=== PATIENT | female | born 1970 | race African-American/Black ===

== ENCOUNTER → 2016-06-23 | Outpatient (CLI) | payer OTHER ==
--- NOTE | 2016-06-23 08:31 | EKG REPORT ---
SEVERITY:- NORMAL ECG - SINUS RHYTHM : Confirmed by: Richard Kellogg 23-Jun-2016 08:31:02
[2016-06-23 09:35] LABS: HEMATOCRIT 39.6 % (36.0-47.0); HEMOGLOBIN 13.3 g/dL (12.0-15.5); HGB HCT DIFFERENCE 0.3; MEAN CORPUSCULAR HEMOGLOBIN 28.1 pg (27.0-33.4); MEAN CORPUSCULAR HGB CONC 33.7 g/dL (32.0-36.0); MEAN CORPUSCULAR VOLUME 84 fl (80-97); RED BLOOD COUNT 4.74 10^6/uL (3.72-5.28); RED CELL DISTRIBUTION WIDTH 13.3 % (11.5-14.0); WHITE BLOOD COUNT 5.8 10^3/uL (4.0-10.5)
[2016-06-23 09:42] LABS: APPEARANCE,URINE SLIGHTLY-CLOUDY; BILIRUBIN,URINE NEGATIVE (NEGATIVE); GLUCOSE, URINE NEGATIVE (NEGATIVE); KETONES,URINE NEGATIVE (NEGATIVE); LEUKOCYTE ESTERASE,URINE NEGATIVE (NEGATIVE); NITRITE,URINE NEGATIVE (NEGATIVE); PROTEIN,URINE NEGATIVE (NEGATIVE); UROBILINOGEN,URINE NEGATIVE mg/dL (<2.0)
[2016-06-23 10:21] LABS: ANION GAP 13 (5-19); BLOOD UREA NITROGEN 12 mg/dL (7-20); CALCIUM 10.9 mg/dL (8.4-10.2); CARBON DIOXIDE 30 mmol/L (22-30); CHLORIDE 98 mmol/L (98-107); CREATININE RESULT 0.85 mg/dL (0.52-1.25); GLUCOSE 136 mg/dL (75-110); POTASSIUM 4.1 mmol/L (3.6-5.0); SODIUM 140.5 mmol/L (137-145)
== END ==
LOC: OD 07:56
PROVIDERS: ATTEND Orthopaedic Surgery
DX: Z01.810 Encounter for preprocedural cardiovascular examination (principal); Z01.811 Encounter for preprocedural respiratory examination; Z01.818 Encounter for other preprocedural examination; Z79.899 Other long term (current) drug therapy; M17.11 Unilateral primary osteoarthritis, right knee
CPT/HCPCS: 36415; 71020; 80048; 81001; 85027; 93005; 93010

== ENCOUNTER 2016-06-30 06:42 | Inpatient (IN) | payer OTHER ==
[~2016-06-30 06:42] MED LIST: BUPIVACAINE INJ/PF LIPOSOME/PF 266 MG/20 ML SDV IJ PRN; CEFAZOLIN INJ 1 GM VIAL IV PRN; IBUPROFEN 800 MG in NORMAL SALINE 250 ML IV PRN; LANSOPRAZOLE 15 MG TAB.RAP.DR PO PRN; OXYCODONE HCL SR 10 MG TABLET PO PRN; RINGERS SOLUTION,LACTATED 1,000 ML IV PRN; SCOPOLAMINE HYDROBROMIDE 1.5 MG PATCH.TD72 TD PRN; VANCOMYCIN HCL 1,000 MG in DEXTROSE 5%-WATER 250 ML IV PRN
[2016-06-30] MEDS ORDERED: THROMBIN (BOVINE) 5000 UNIT EPITAXIS KIT ONE (07:15)
[2016-06-30] MEDS ORDERED: BUPIVACAINE INJ/PF LIPOSOME/PF 266 MG/20 ML SDV ONE (07:15)
[2016-06-30] MEDS ORDERED: THROMBIN (BOVINE) TOPICAL 20000 UNIT VIAL ONE (07:15)
[2016-06-30] MEDS ORDERED: PROPOFOL INJ 200 MG/20 ML VIAL IV ONE (07:26)
[2016-06-30] MEDS ORDERED: FENTANYL CITRATE INJ/PF 100 MCG/2 ML AMPUL ONE (07:26)
[2016-06-30] MEDS ORDERED: TRANEXAMIC ACID INJ/PF 1,000 MG/10 ML SDV IV ONE (07:26)
[2016-06-30] MEDS ORDERED: MIDAZOLAM 2 MG/2 ML INJ ONE (07:26)
[2016-06-30 08:00] LABS: POTASSIUM 3.9 mmol/L (3.6-5.0)
[2016-06-30] MEDS ORDERED: MEPERIDINE HCL/PF INJ 25 MG/1 ML DISP.SYRIN IV PRN (09:45)
[2016-06-30] MEDS ORDERED: DIPHENHYDRAMINE HCL 50 MG/ML VIAL IV PRN ×2 (09:45→10:32)
[2016-06-30] MEDS ORDERED: FENTANYL CITRATE INJ/PF 100 MCG/2 ML AMPUL IV PRN ×3 (09:45)
[2016-06-30] MEDS ORDERED: MORPHINE SULFATE 10 MG/ML INJ IV PRN ×3 (09:45→10:32)
[2016-06-30] MEDS ORDERED: PROMETHAZINE HCL INJ 25 MG/1 ML VIAL IV PRN ×2 (09:45)
[2016-06-30] MEDS ORDERED: ERGOCALCIFEROL 5000 UNIT PO PRN (10:32)
[2016-06-30] MEDS ORDERED: OXYMETAZOLINE HCL 0.05% NASAL SPRAY 15 ML BOTTLE NASL PRN (10:32)
[2016-06-30] MEDS ORDERED: ACETAMINOPHEN 325 MG TABLET PO PRN (10:32)
[2016-06-30] MEDS ORDERED: ZOLPIDEM TARTRATE 5 MG TABLET PO PRN (10:32)
[2016-06-30] MEDS ORDERED: RINGERS SOLUTION,LACTATED 1,000 ML IV PRN (10:32)
[2016-06-30] MEDS ORDERED: MAG HYDROX/AL HYDROX/SIMETH SUSP 30 ML UDCUP PO PRN (10:32)
[2016-06-30] MEDS ORDERED: ONDANSETRON HCL INJ/PF 4 MG/2 ML SDV IV PRN (10:32)
--- NOTE | 2016-06-30 10:32 | Operative Report ---
Operative Report DATE OF SURGERY: 06/30/16 PREOPERATIVE DIAGNOSIS: Right knee arthritis OPERATION: Right knee arthroplasty SURGEON: SHIKHA KELLY ANESTHESIA: Spinal TISSUE REMOVED OR ALTERED: Bone to pathology ESTIMATED BLOOD LOSS: 100 PROCEDURE: Implants used: Femur: Striker triathlon #4 CR femur Tibia:, #3 tibia Tibial liner:, 9 mm CS insert Patella: 29 mm oval patella Procedure with the patient supine on the operating table the right the limb is prepped and draped in a sterile fashion. The limb was elevated for exsanguination and the tourniquet inflated to 280 torr. A standard midline median parapatellar approach the knee is taken. Access is gained to the femoral canal through the intercondylar notch. Intramedullary alignment instrumentation used to resect 10 mm of distal femur in 5 of valgus. Sizing guide indicated a size for femur. Appropriate cutting jig is then used to fashion anterior posterior and chamfer cuts. A trial reduction femurs performed and this is judged to be adequate. Attention was next turned to the tibia. Using an extra medullary alignment system 9 millimeters was resected off the lateral tibial plateau. This is sized to a size 3 tibia. A trial reduction was now performed with a 4 femur and a 3 tibia using a 9 millimeters spacer. It is full extension and central patellofemoral tracking. The articular surface the patella was next resected using an oscillating saw. All trial implants were removed. Polymethylmethacrylate is mixed and used to cement the above implants in place. On adequate curing the cement excess cement was removed the tourniquet was deflated hemostasis obtained the wound is then closed in layers using interrupted Vicryl followed by kati. A sterile compressive dressing was applied and the patient returned to recovery room in satisfactory condition.
[2016-06-30] MEDS ORDERED: GLYCOPYRROLATE INJ 0.4 MG/2 ML VIAL ONE (11:43)
[2016-06-30] MEDS ORDERED: DEXAMETHASONE SOD PHOSPHATE INJ 4 MG/1 ML VIAL ONE (11:43)
[2016-06-30] MEDS ORDERED: PHENYLEPHRINE HCL INJ/PF 10 MG/1 ML SDV ONE (11:43)
[2016-06-30] MEDS ORDERED: ONDANSETRON HCL INJ/PF 4 MG/2 ML SDV ONE (11:43)
[2016-06-30] MEDS: MORPHINE SULFATE 10 MG/ML INJ IM PRN ×2 (12:58→16:15)
[2016-06-30] MEDS: ONDANSETRON 4 MG TAB.RAPDIS PO PRN ×2 (13:50→19:53)
[2016-06-30] MEDS: OXYCODONE HCL IR 5 MG TABLET PO PRN ×2 (14:40→20:43)
[2016-06-30] MEDS ORDERED: HYDROCHLOROTHIAZIDE 25 MG TABLET PO ONE (15:00)
[2016-06-30] MEDS: IBUPROFEN 800 MG in NORMAL SALINE 250 ML IV SCH (18:23)
[2016-06-30] MEDS: SENNOSIDES/DOCUSATE 8.6-50 MG 1 EACH TABLET PO SCH (18:43)
[2016-06-30] MEDS: MORPHINE SULFATE 10 MG/ML INJ IV PRN (22:13)
[2016-06-30] MEDS: RIVAROXABAN 10 MG TABLET PO SCH (22:13)
[2016-06-30] MEDS ORDERED: VANCOMYCIN HCL 1,000 MG in DEXTROSE 5%-WATER 250 ML IV ONE (23:00)
[2016-06-30] MEDS: OXYCODONE HCL SR 10 MG TABLET PO SCH (23:15)
[2016-07-01] MEDS: MORPHINE SULFATE 10 MG/ML INJ IV PRN ×8 (00:30→23:47)
[2016-07-01] MEDS: ONDANSETRON 4 MG TAB.RAPDIS PO PRN (02:02)
[2016-07-01] MEDS: IBUPROFEN 800 MG in NORMAL SALINE 250 ML IV SCH ×3 (02:02→17:59)
[2016-07-01] MEDS: LANSOPRAZOLE 30 MG TAB.RAP.DR PO SCH (05:15)
[2016-07-01 07:05] LABS: HEMATOCRIT 32.4 % (36.0-47.0); HGB HCT DIFFERENCE 0.6; MEAN CORPUSCULAR HEMOGLOBIN 27.8 pg (27.0-33.4); MEAN CORPUSCULAR HGB CONC 33.9 g/dL (32.0-36.0); MEAN CORPUSCULAR VOLUME 82 fl (80-97); RED BLOOD COUNT 3.95 10^6/uL (3.72-5.28); RED CELL DISTRIBUTION WIDTH 12.9 % (11.5-14.0); WHITE BLOOD COUNT 9.7 10^3/uL (4.0-10.5)
[2016-07-01 07:23] LABS: ANION GAP 13 (5-19); BLOOD UREA NITROGEN 8 mg/dL (7-20); CALCIUM 9.5 mg/dL (8.4-10.2); CARBON DIOXIDE 22 mmol/L (22-30); CHLORIDE 99 mmol/L (98-107); CREATININE RESULT 0.73 mg/dL (0.52-1.25); GLUCOSE 162 mg/dL (75-110); POTASSIUM 3.5 mmol/L (3.6-5.0); SODIUM 133.9 mmol/L (137-145)
[2016-07-01] MEDS: OXYCODONE HCL IR 5 MG TABLET PO PRN ×2 (07:58→17:53)
[2016-07-01] MEDS: HYDROCHLOROTHIAZIDE 25 MG TABLET PO SCH (09:56)
[2016-07-01] MEDS: OXYCODONE HCL SR 10 MG TABLET PO SCH ×2 (09:57→21:48)
[2016-07-01] MEDS: SENNOSIDES/DOCUSATE 8.6-50 MG 1 EACH TABLET PO SCH ×2 (09:58→17:56)
[2016-07-01] MEDS: PRENATAL VITAMIN W-O CA NO5/FE FUMARATE/FA CAPSULE PO SCH (10:15)
[2016-07-01] MEDS ORDERED: TRANEXAMIC ACID INJ/PF 1,000 MG/10 ML SDV IV ONE (12:00)
[2016-07-01] MEDS ORDERED: INFLUENZA ADLT QUAD (36MOS+) 2016-17 VAC 0.5 ML SYR IM PRN (16:10)
[2016-07-01] MEDS: RIVAROXABAN 10 MG TABLET PO SCH (21:48)
[2016-07-02] MEDS: IBUPROFEN 800 MG in NORMAL SALINE 250 ML IV SCH ×2 (02:25→09:34)
[2016-07-02] MEDS: MORPHINE SULFATE 10 MG/ML INJ IV PRN ×3 (02:25→12:05)
[2016-07-02] MEDS: LANSOPRAZOLE 30 MG TAB.RAP.DR PO SCH (06:30)
--- NOTE | 2016-07-02 07:08 | PDOC DISCHARGE SUMMARY ---
General - Admit/Disc Date/PCP Admission Date/Primary Care Provider: 06/30/16 06:42 SHAILA HENDRICKS PA-C Discharge Date: 07/02/16 - Discharge Diagnosis (1) Arthritis of right knee Is this a current diagnosis for this admission?: Yes - Additional Information Resuscitation Status: Full Code Discharge Diet: As Tolerated, Regular Discharge Activity: Balance Activity w/Rest Home Medications: Ergocalciferol (Vitamin D2) [Vitamin D2] 5,000 unit PO FR@1000 06/25/16 Hydrochlorothiazide 25 mg PO QAM 06/25/16 Meloxicam 7.5 mg PO BID 06/25/16 Oxymetazoline HCl [Afrin 0.05% Nasal [place] 15 ml Bottle] 1 spray NASL ASDIR PRN 06/25/16 Oxycodone HCl [Oxy-Ir 5 mg Tablet] 5 mg PO Q6HP PRN #0 tablet 07/02/16 Rivaroxaban [Xarelto 10 mg Tablet] 10 mg PO QHS #0 tablet 07/02/16 History of Present Illness History of Present Illness: HENOK BOJORQUEZ is a 45 year old female who presented with progressive right knee pain and functional disability. She is admitted for elective right knee arthroplasty. Hospital Course Hospital Course: Patient's a Mitek through the operating room where she undergoes uncomplicated right knee arthroplasty. She's returned to the floor in satisfactory condition. She makes excellent progress with physical therapy and weightbearing as tolerated basis. Remains above 32%. Blood glucoses are under control between 1:30 11/01/1956. Dressing is changed on postop day #2. Wound is clean dry and intact. Physical Exam Vital Signs: Temp Pulse Resp BP Pulse Ox 36.7 C 112 H 17 117/80 98 07/01/16 23:32 07/01/16 23:32 07/01/16 23:32 07/01/16 23:32 07/01/16 23:32 Intake & Output 07/01/16 07/02/16 07/03/16 06:59 06:59 06:59 Intake Total 6550 1214 Output Total 5085 Balance 1465 1214 Weight 80.1 kg General appearance: PRESENT: no acute distress Head exam: PRESENT: normocephalic Eye exam: PRESENT: EOMI Respiratory exam: PRESENT: unlabored Cardiovascular exam: PRESENT: RRR Pulses: PRESENT: +1 pedal pulses bilateral GI/Abdominal exam: PRESENT: soft Rectal exam: PRESENT: deferred Extremities exam: PRESENT: other - Right knee incision is well approximated with kati. There is no erythema or drainage. Dressing is really placed with an OpSite. Distal neurovascular examination is intact. There is minimal pedal edema. Neurological exam: PRESENT: alert, awake, oriented to person, oriented to place , oriented to time, oriented to situation, CN II-XII grossly intact. ABSENT: motor sensory deficit Psychiatric exam: PRESENT: appropriate affect, normal mood. ABSENT: homicidal ideation, suicidal ideation Results Laboratory Results: 07/01/16 06:16 07/01/16 06:16 07/01/16 07/01/16 06:16 06:16 WBC 9.7 RBC 3.95 Hgb 11.0 L Hct 32.4 L MCV 82 MCH 27.8 MCHC 33.9 RDW 12.9 Plt Count 235 Sodium 133.9 L Potassium 3.5 L Chloride 99 Carbon Dioxide 22 Anion Gap 13 BUN 8 Creatinine 0.73 Est GFR ( Amer) > 60 Est GFR (Non-Af Amer) > 60 Glucose 162 H Calcium 9.5 Impressions: Knee X-Ray 06/30/16 10:33 IMPRESSION: SATISFACTORY POSTOPERATIVE RIGHT KNEE. Status: Imported from PACS Qualifiers P[facility]INT BEING DISCHARGED WITH ANY OF THE FOLLOWING DIAGNOSIS?: No VTE patient discharged on overlapping Therapy?: Yes Plan Discharge Plan: Patient to be discharged home with home health nursing and home health physical therapy. Patient also we'll walker and bedside commode. Follow-up can be with Dr. Lopez in the [facility] for surgery approximately 2 weeks for staple removal. Time Spent: Less than 30 Minutes
[2016-07-02 07:22] LABS: HEMOGLOBIN 10.2 g/dL (12.0-15.5); HGB HCT DIFFERENCE 0.6; MEAN CORPUSCULAR HEMOGLOBIN 28.1 pg (27.0-33.4); MEAN CORPUSCULAR HGB CONC 34.1 g/dL (32.0-36.0); MEAN CORPUSCULAR VOLUME 82 fl (80-97); RED BLOOD COUNT 3.64 10^6/uL (3.72-5.28); RED CELL DISTRIBUTION WIDTH 13.1 % (11.5-14.0); WHITE BLOOD COUNT 9.2 10^3/uL (4.0-10.5)
[2016-07-02] MEDS: PRENATAL VITAMIN W-O CA NO5/FE FUMARATE/FA CAPSULE PO SCH (09:32)
[2016-07-02] MEDS: HYDROCHLOROTHIAZIDE 25 MG TABLET PO SCH (09:32)
[2016-07-02] MEDS: OXYCODONE HCL SR 10 MG TABLET PO SCH (09:33)
[2016-07-02] MEDS: SENNOSIDES/DOCUSATE 8.6-50 MG 1 EACH TABLET PO SCH (09:34)
[2016-07-02 11:40] VITALS: BP 133/77
== END 2016-07-02 12:40 | disposition home or self-care (01) | DRG 470 ==
LOC: INOR 06:42 → 4N 12:00
PROVIDERS: ADMIT Orthopaedic Surgery; ATTEND Orthopaedic Surgery
PROC: 0SRC0J9 Replacement of Right Knee Joint with Synthetic Substitute, Cemented, Open Approach (ICD-10-PCS; principal; 2016-06-30 09:00)
DX: M17.11 Unilateral primary osteoarthritis, right knee (principal); Z90.49 Acquired absence of other specified parts of digestive tract; Z90.710 Acquired absence of both cervix and uterus
CPT/HCPCS: 01402; 36415; 80048; 82947; 82962; 84132; 85027; 88305; 88311; 90686; 94799; C9290; J0690; J1100; J1741; J2250; J2270; J2370; J2405; J2704; J3010; J3370; J3490; J7050; J7060; J7120; S0119

== ENCOUNTER 2016-07-05 10:38 | Emergency (ER) | payer OTHER ==
--- NOTE | 2016-07-05 10:44 | ER Document Report ---
ED Medical Screen (RME) - General Stated Complaint: KNEE PAIN Time seen by provider: 10:43 Mode of Arrival: Ambulatory Information source: Patient Notes: 45-year-old female with a total right knee replacement on Thursday by Dr. Lopez noticed a small bruise on the medial right ankle yesterday and it has gotten larger today. She takes xarelto 10mg daily. Right knee pain has not changed since her surgery. No fever. TRAVEL OUTSIDE OF THE [place] IN LAST 30 DAYS: No - Related Data Allergies/Adverse Reactions: No Known Allergies Allergy (Verified 07/05/16 10:44) Past Medical History - Past Medical History Cardiac Medical History: Reports: Hx Hypertension Denies: Hx Atrial Fibrillation, Hx Congestive Heart Failure, Hx Coronary Artery Disease, Hx Heart Attack, Hx Hypercholesterolemia, Hx Peripheral Vascular Disease, Hx Heart Murmur Neurological Medical History: Denies: Hx Cerebrovascular Accident, Hx Seizures Endocrine Medical History: Denies: Hx Graves' Disease, Hx Hyperthyroidism, Hx Hypothyroidism Renal/ Medical History: Reports: Hx Kidney Stones - several. Denies: Hx End Stage Renal Disease, Hx Peritoneal Dialysis GI Medical History: Denies: Hx Crohn's Disease, Hx Gastroesophageal Reflux Disease, Hx Hiatal Hernia, Hx Irritable Bowel, Hx Liver Failure, Hx Ulcer Musculoskeltal Medical History: Reports Hx Arthritis, Denies Hx Fibromyalgia, Denies Hx Multiple Sclerosis, Denies Hx Muscular Dystrophy Psychiatric Medical History: Reports: Hx Depression - Anxiety Denies: Hx Bipolar Disorder, Hx Dementia, Hx Post Traumatic Stress Disorder, Hx Schizophrenia Traumatic Medical History: Denies: Hx Fractures Past Surgical History: Reports: Hx Cholecystectomy, Hx Hysterectomy. Denies: Hx Appendectomy, Hx Bowel Surgery, Hx Section, Hx Colostomy, Hx Coronary Artery Bypass Graft, Hx Gastric Bypass Surgery, Hx Herniorrhaphy, Hx Mastectomy, Hx Pacemaker, Hx Tonsillectomy, Hx Tubal Ligation Physical Exam - Vital signs Vitals: Temp Pulse Resp BP Pulse Ox 98.2 F 113 H 16 134/94 H 98 07/05/16 10:41 07/05/16 10:41 07/05/16 10:41 07/05/16 10:41 07/05/16 10:41 Course - Vital Signs Vital signs: Temp Pulse Resp BP Pulse Ox 98.2 F 113 H 16 134/94 H 98 07/05/16 10:41 07/05/16 10:41 07/05/16 10:41 07/05/16 10:41 07/05/16 10:41
[2016-07-05 11:10] LABS: ABSOLUTE EOSINOPHILS # (AUTO) 0.2 10^3/uL (0.0-0.6); ABSOLUTE LYMPHOCYTES (AUTO) 1.5 10^3/uL (0.5-4.7); ABSOLUTE MONOCYTES (AUTO) 0.7 10^3/uL (0.1-1.4); BASOPHILS % (AUTO) 0.2 % (0-2); HEMATOCRIT 31.6 % (36.0-47.0); HEMOGLOBIN 10.6 g/dL (12.0-15.5); HGB HCT DIFFERENCE 0.2; LYMPHOCYTES % (AUTO) 16.4 % (13-45); MEAN CORPUSCULAR HEMOGLOBIN 28.1 pg (27.0-33.4); MEAN CORPUSCULAR HGB CONC 33.6 g/dL (32.0-36.0); MEAN CORPUSCULAR VOLUME 84 fl (80-97); MONOCYTES % (AUTO) 7.2 % (3-13); PROTHROMBIN TIME 21.2 SEC (11.4-15.4); RED BLOOD COUNT 3.78 10^6/uL (3.72-5.28); RED CELL DISTRIBUTION WIDTH 12.9 % (11.5-14.0); SEGMENTED NEUTROPHILS % (AUTO) 74.2 % (42-78); WHITE BLOOD COUNT 9.4 10^3/uL (4.0-10.5)
[2016-07-05 11:11] LABS: PARTIAL THROMBOPLASTIN TIME 48.7 SEC (23.5-35.8)
[2016-07-05 11:30] LABS: ALANINE AMINOTRANSFERASE 123 U/L (9-52); ALBUMIN 3.9 g/dL (3.5-5.0); ALKALINE PHOSPHATASE 118 U/L (38-126); ANION GAP 13 (5-19); ASPARTATE AMINO TRANSFERASE 65 U/L (14-36); BILIRUBIN,TOTAL 0.8 mg/dL (0.2-1.3); BLOOD UREA NITROGEN 9 mg/dL (7-20); CALCIUM 10.1 mg/dL (8.4-10.2); CARBON DIOXIDE 29 mmol/L (22-30); CHLORIDE 96 mmol/L (98-107); CREATININE RESULT 0.83 mg/dL (0.52-1.25); GLUCOSE 152 mg/dL (75-110); POTASSIUM 3.8 mmol/L (3.6-5.0); TOTAL PROTEIN 7.2 g/dL (6.3-8.2)
[2016-07-05] MEDS ORDERED: PROMETHAZINE HCL 25 MG TABLET PO ONE (11:45)
[2016-07-05] MEDS ORDERED: OXYCODONE-ACETAMINOPHEN 5-325 MG TABLET PO ONE (11:45)
--- NOTE | 2016-07-05 15:16 | ER Document Report ---
ED Extremity Problem, Lower - General Chief Complaint: Knee Pain Stated Complaint: KNEE PAIN Mode of Arrival: Ambulatory Notes: Patient underwent a right total knee replacement by Dr. Kelly on Thursday. She is complaining of pain and swelling of her right knee with bruising apparent over the medial, inner aspect of the right knee and to a lesser extent over the outer, lateral aspect of that same right knee joint. Patient is on Xarelto anticoagulation since her surgery on Thursday. Denies any chest pains. No shortness of breath or difficulty breathing. No fevers. No history of venous thromboses. Patient is on Percocets for postsurgical pain TRAVEL OUTSIDE OF THE [place] IN LAST 30 DAYS: No - Related Data Allergies/Adverse Reactions: No Known Allergies Allergy (Verified 07/05/16 10:44) Home Medications: Current Home Medications Promethazine HCl [Phenergan 25 mg Tablet] 25 mg PO Q6 07/05/16 [History] Past Medical History - General Information source: Patient - Social History Smoking Status: Unknown if Ever Smoked Cigarette use (# per day): No Chew tobacco use (# tins/day): No Frequency of alcohol use: None Drug Abuse: None Family History: Reviewed & Not Pertinent Patient has suicidal ideation: No Patient has homicidal ideation: No - Past Medical History Cardiac Medical History: Reports: Hx Hypertension Denies: Hx DVT, Hx Peripheral Vascular Disease, Hx Pulmonary Embolism Neurological Medical History: Denies: Hx Cerebrovascular Accident, Hx Seizures Renal/ Medical History: Reports: Hx Kidney Stones - several. Denies: Hx End Stage Renal Disease GI Medical History: Denies: Hx Crohn's Disease, Hx Gastroesophageal Reflux Disease, Hx Hiatal Hernia, Hx Irritable Bowel, Hx Liver Failure, Hx Ulcer Musculoskeltal Medical History: Reports Hx Arthritis, Denies Hx Fibromyalgia, Denies Hx Multiple Sclerosis, Denies Hx Muscular Dystrophy Psychiatric Medical History: Reports: Hx Depression - Anxiety Traumatic Medical History: Denies: Hx Fractures Past Surgical History: Reports: Hx Cholecystectomy, Hx Hysterectomy, Hx Orthopedic Surgery - rt knee replacement - Immunizations Hx Diphtheria, Pertussis, Tetanus Vaccination: Yes Review of Systems - Review of Systems Notes: REVIEW OF SYSTEMS: CONSTITUTIONAL : Denies fever. EENT: Denies eye, ear, nose or mouth or throat pain or other symptoms. CARDIOVASCULAR: Denies chest pain. RESPIRATORY: Denies cough, chest congestion, or shortness of breath. GASTROINTESTINAL: Denies abdominal pain or nausea, vomiting, or diarrhea. GENITOURINARY: Denies difficulty or painful urinating, urinary frequency, blood in urine. MUSCULOSKELETAL: Denies back or neck pain. See history of present illness regarding right knee. SKIN: Denies rash or skin lesions. NEUROLOGICAL: Denies LOC or altered mental status. Denies headache. Denies sensory loss or motor deficits. ALL OTHER SYSTEMS REVIEWED AND NEGATIVE. Physical Exam - Vital signs Vitals: Temp Pulse Resp BP Pulse Ox 98.2 F 113 H 16 134/94 H 98 07/05/16 10:41 07/05/16 10:41 07/05/16 10:41 07/05/16 10:41 07/05/16 10:41 Interpretation: Tachycardic - Very slight - Notes Notes: PHYSICAL EXAMINATION: GENERAL: Well-appearing, in no acute distress. Vital signs are all normal. HEAD: Atraumatic, normocephalic. EYES: Pupils equal round and reactive to light, extraocular movements intact. NECK: Normal range of motion, supple. LUNGS: Breath sounds clear and equal bilaterally. HEART: Regular rate and rhythm without murmurs. ABDOMEN: Soft, nontender. No guarding or rebound. EXTREMITIES: Patient's right knee has a post surgical bandage anteriorly patient has what appears to be some ecchymosis of the medial aspect of the right knee and slightly lesser amount of ecchymosis over the lateral aspect of the knee. She is tender diffusely. Warm to the touch, but no erythema noted. No significant effusion of the knee joint present. Remainder of the right lower extremity shows no areas of pain or swelling or anything that would suggest a DVT. All other joints with normal range of motion without pain. NEUROLOGICAL: Normal speech, normal gait. Normal sensory, motor, and reflex exams. Awake, alert, and oriented x3. Cranial nerves normal. PSYCH: Normal mood, normal affect. SKIN: Warm, dry, no rashes. Course - Vital Signs Vital signs: Temp Pulse Resp BP Pulse Ox 99.1 F 92 20 136/76 H 98 07/05/16 15:34 07/05/16 15:34 07/05/16 15:34 07/05/16 15:34 07/05/16 15:34 - Laboratory Result Diagrams: 07/05/16 10:50 07/05/16 10:50 Laboratory results interpreted by me: 07/05/16 07/05/16 07/05/16 10:50 10:50 10:50 Hgb 10.6 L Hct 31.6 L PT 21.2 H APTT 48.7 H Chloride 96 L Glucose 152 H AST 65 H ALT 123 H - Diagnostic Test Radiology reviewed: Image reviewed, Reports reviewed - Patient had a venous Doppler of the right lower extremity which did not show any evidence of DVT. Discharge - Discharge Clinical Impression: Pain, joint, knee, right S/P TKR (total knee replacement) Qualifiers: Laterality: right Qualified Code(s): Z96.651 - Presence of right artificial knee joint Condition: Stable Disposition: HOME, SELF-CARE Additional Instructions: Postop pain, right knee, Contusion Your injury has resulted in a contusion -- a crushing of the deep tissues. No injury to important structures was detected during the physician's exam. Contusions vary in the amount of pain they cause, and in the length of time required for healing. Typically, the area will become bruised, and will remain painful to touch for two or three weeks. However, most patients are back to working and playing within a few days. After the initial period of rest and cold-packs, your symptoms (together with the doctor's recommendations) will determine how rapidly you can get back to full activity. Usually this means "do what feels okay, but don't do things that hurt." If re-examination was recommended, it's important to follow up as instructed. Call the doctor or return any time if pain increases, if swelling becomes severe, if you develop numbness or weakness in an injured extremity, or if any other alarming symptoms occur. Ice & Elevation Apply ice packs frequently against the painful area. Many different schedules are recommended, such as "20 minutes on, 20 minutes off" or "one hour ice, two hours rest." If you need to work, you may need to go longer between ice treatments. You should plan to have the area ice packed AT LEAST one- fourth of the time. The ice should be applied over the wrap, tape, or splint, or over a layer of cloth -- not directly against the skin. Some ice bags have a built-in cloth and can be put directly on the skin. Your injured part should be elevated as much as possible over the next 48 hours. Try to keep the injury above the level of the heart. Avoid use of the injured area. Elevation and rest will decrease the swelling. Take your Percocet pain pills, up to one or two every 4 hours as needed for pain. FOLLOW-UP CARE: If you have been referred to a physician for follow-up care, call the physician s office for an appointment as you were instructed or within the next two days. If you experience worsening or a significant change in your symptoms, notify the physician immediately or return to the Emergency Department at any time for re-evaluation. Follow-up with Dr. Kelly as planned. Return if new or worsening symptoms, fever, etc. Referrals: SHIKHA KELLY MD [ACTIVE STAFF] - Follow up as needed
[2016-07-05 15:35] VITALS: BP 136/76
--- NOTE | 2016-07-05 15:52 | VASCULAR PRELIM REPORT ---
Provider Note Provider Note: negative for dvt. discussed with dr preciado at 1550 hours.
--- NOTE | 2016-07-07 15:13 | XCELERA REPORT ---
[address] [address] Lower Extremity Venous Evaluation Name: HENOK BOJORQUEZ Age: 45 yrs Gender: Female : 1970 Patient Status: Emergency Patient Location: ER Study Date: 07/05/2016 03:00 PM Procedure: Color flow and duplex imaging of the veins of the right lower extremity as well as the left Common Femoral vein. Reason For Study: pain, swelling, bruising medial R knee;TKR 5 d ago Ordering Physician: SCAR LONGO Performed By: Scarlett Hastings Right Sided Venous Evaluation Normal vessel filling wall to wall, compression and augmentation as well as Colour flow down to the infrageniculate veins. Left Sided Venous Evaluation The left common femoral vein is fully compressible. Spontaneous and phasic flow is present in the left common femoral vein. Critical Findings Called in to the ER. Interpretation Summary No duplex evidence of DVT or obstruction in the right lower extremity nor in the left Common Femoral vein. : SCAR LONGO > Lazaro Milan
== END 2016-07-05 15:33 | disposition home or self-care (01) ==
LOC: ER 10:38
DX: M25.561 Pain in right knee (principal); Z98.890 Other specified postprocedural states; Z96.651 Presence of right artificial knee joint; R00.0 Tachycardia, unspecified; I10 Essential (primary) hypertension; Z79.01 Long term (current) use of anticoagulants
CPT/HCPCS: 36415; 80053; 85025; 85610; 85730; 93971; 99284